=== PATIENT | female | born 1935 | race Caucasian/White ===

== ENCOUNTER → 2017-11-12 | Outpatient (CLI) | payer MEDICARE ==
[~2017-11-12] MED LIST: AMIT25TA PO; ASPI-515 PO; CARV12.52 PO; FURO40TA6 PO; PRAV40TA2 PO; SPIR25TA5 PO; WARF1TAB74 PO
== END | disposition home or self-care (01) ==
LOC: ROC 09:33
PROVIDERS: ATTEND Radiology Radiation Oncology
DX: Z08 Encounter for follow-up examination after completed treatment for malignant neoplasm (principal); Z85.118 Personal history of other malignant neoplasm of bronchus and lung
CPT/HCPCS: G0463